=== PATIENT | female | born 2005 | race Caucasian/White ===

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

== ENCOUNTER 2025-01-16 08:52 | Emergency (ER) | payer OTHER, SELFPAY ==
[2025-01-16 09:13] VITALS: BP 120/73; PULSE 92; RESP 16; TEMP 36.8; O2SAT 97
[2025-01-16] MEDS: Ondansetron 4 MG/2 ML VIAL IVP (09:45)
[2025-01-16] MEDS: Lactated Ringers 1,000 ML 1000 ML IV (09:45)
[2025-01-16 10:07] LABS: Glucose Negative (Negative)
[2025-01-16 10:10] LABS: Abs Immature Grans 0.03 10^3/uL (0.0-0.06); HCT 41.3 % (36.0-46.0); HGB 14.8 g/dL (11.2-15.7); Immature Grans % 0.3 %; MCH 29.4 pg (27.0-33.0); MCHC 35.8 % (32.0-36.0); MCV 82 fL (80-95); MPV 8.7 fL (8.0-11.0); Platelet Count 322 10^3/uL (130-400); RBC 5.03 10^6/uL (3.93-5.22); RDW 12.1 % (11.7-14.6); RDW-SD 35.7 fL; WBC 9.46 10^3/uL (4.4-10.8)
[2025-01-16 10:17] LABS: C & S Indicated? No; RBC 0-2 HPF (0-2); WBC 0-2 HPF (0-5)
--- NOTE | 2025-01-16 10:23 | W.ED.GENAD ---
Discharge Plan Disposition Patient Disposition: Home Condition: Stable Discharge Details Clinical Impression: Nausea & vomiting Primary Care Provider: None,None ED Provider: Elisabeth Tolbert Home Meds and New Rx's Prescriptions: New ondansetron 4 mg tablet,disintegrating 4 mg PO TID PRN3 Days Qty: 12 0RF Continued albuterol sulfate 90 mcg/actuation HFA aerosol inhaler 2 inh INHALATION Q4H PRN Patient Comments: INHALE 2 PUFFS BY MOUTH EVERY 6 HOURS NEEDED FOR WHEEZING Nexplanon 68 mg Implant See Rx Instructions .ROUTE .COMPLEX Rx Instructions: As directed olanzapine 5 mg tablet 15 mg PO QHS ondansetron 4 mg tablet,disintegrating 8 mg PO DAILY PRN Patient Comments: DISSOLVE 1 TABLET IN MOUTH EVERY 8 HOURS NEEDED FOR NAUSEA AND VOMITING FOR 3 DAYS Discharge Instructions Instructions: Nausea and Vomiting, Adult ED Additional Instructions: Clear liquids, if you are regularly able to tolerate Gatorade, water, fluids Jell-O and soup, you may try some bland food such as toast, rice, applesauce, bananas Take the Zofran as needed for nausea and vomiting Try to take your Zyprexa continuously it may help to set an alarm on your phone Stand Alone Forms: Portal Information Discharge Data Discharge Date/Time-TO BE ENTERED AT DEPARTURE: 01/16/25 12:22 HPI General Date/Time Provider Initiated Documentation: 01/16/25 08:52. HPI Narrative: This 19-year-old female presents with nausea and vomiting that started Wednesday. She had not taken her antipsychotics for several days when this began. She states this to happen numerous times in the past. 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 She has had Related Data Home Medications Medication Instructions Recorded Confirmed albuterol sulfate 90 mcg/actuation 2 inh inhalation Q4H PRN 04/02/22 01/16/25 aerosol inhaler etonogestrel 68 mg subdermal See Rx Instructions .Route .COMPLEX 04/02/22 01/16/25 implant (Nexplanon) olanzapine 5 mg tablet 15 mg PO QHS 03/11/23 01/16/25 ondansetron 4 mg disintegrating 8 mg PO DAILY PRN 03/11/23 01/16/25 tablet ondansetron 4 mg disintegrating 4 mg PO TID PRN 3 days #12 tabs 01/16/25 tablet Previous Rx's Medication Instructions Recorded ondansetron 4 mg disintegrating 4 mg PO TID PRN 3 days #12 tabs 01/16/25 tablet Allergies Allergy/AdvReac Type Severity Reaction Status Date / Time acetaminophen (From Tylenol) AdvReac Nausea Unverified 01/16/25 09:17 clonidine AdvReac Other (See Unverified 01/16/25 09:17 Comment) General Stated Complaint: Nausea/Vomit/Diar RAMSES: 3 Course Vital Signs Vital signs: Vital Signs Temperature 36.8 C 01/16/25 09:13 Pulse 92 H 01/16/25 09:13 Respiratory Rate 16 01/16/25 09:13 Blood Pressure 120/73 01/16/25 09:13 Pulse Oximetry 97 01/16/25 09:13 Temperature 36.8 C 01/16/25 09:13 Temperature Source Tympanic 01/16/25 09:13 Pulse 92 H 01/16/25 09:13 Respiratory Rate 16 01/16/25 09:13 Blood Pressure 120/73 01/16/25 09:13 Pulse Oximetry 97 01/16/25 09:13 Oxygen Delivery Method Room Air 01/16/25 09:13 Oxygen Flow Rate 0 01/16/25 09:13 Lab/Test Results Lab/Test Results: Laboratory Tests Range/Units 01/16/25 01/16/25 09:45 09:51 WBC (4.4-10.8) 10^3/uL 9.46 RBC (3.93-5.22) 10^6/uL 5.03 Hgb (11.2-15.7) g/dL 14.8 Hct (36.0-46.0) % 41.3 MCV (80-95) fL 82 MCH (27.0-33.0) pg 29.4 MCHC (32.0-36.0) % 35.8 RDW (11.7-14.6) % 12.1 Plt Count (130-400) 10^3/uL 322 MPV (8.0-11.0) fL 8.7 Immature Gran % % 0.3 Neutrophils % % 83.0 Lymphocytes % % 11.3 Monocytes % % 5.1 Eosinophils % % 0.0 Basophils % % 0.3 Nucleated RBC % (0.0-0.3) % 0.0 Absolute Neutrophils (1.2-6.7) 10^3/uL 7.85 H Absolute Lymphocytes (1.2-3.4) 10^3/uL 1.07 L Absolute Monocytes (0.1-0.8) 10^3/uL 0.48 Absolute Eosinophils (0.0-0.7) 10^3/uL 0.00 Absolute Basophils (0.0-0.2) 10^3/uL 0.03 Urine Color (Yellow) Yellow Urine Clarity (Clear) Clear Urine pH (5-8) 5.5 Ur Specific Marty (1.005-1.025) >= 1.030 H Urine Protein (Neg-Trace) mg/dL 30 H Urine Ketones (Negative) mg/dL >=160 H Urine Blood (Negative) Negative Urine Nitrite (Negative) Negative Urine Bilirubin (Negative) Small H Urine Urobilinogen (Up to 0.2) mg/dL 0.2 Ur Leukocyte Esterase (Negative) Negative Urine RBC (0-2) HPF 0-2 Urine WBC (0-5) HPF 0-2 Ur Epithelial Cells (Negative) HPF Few Urine Crystals (Negative) HPF Negative Urine Bacteria (Negative) HPF Moderate Urine Casts (Negative) LPF Negative Urine Mucus (Negative) Moderate Ur Culture Indicated? No Urine Glucose (Negative) mg/dL Negative Medical Decision Making Patient alert, oriented, no acute distress, she does have ketonuria on her urinalysis likely dehydration, labs are otherwise reassuring, patient is able to tolerate p.o., she received 2 L of NS, antiemetics, and is requesting discharge home, she is in stable condition and encouraged to follow-up with primary care physician for recheck in 1 to 2 days. Nontender abdominal assessment throughout her stay low suspicion clinically for intra-abdominal process. Negative hCG PFSH All Active Problems (Updated 01/16/25 @ 11:07 by DANELLE Quiroga) Nausea & vomiting (Acute) Medical History Asthma Surgical History No significant past surgical history Social History Smoking/Tobacco Use Status: Current every day Tobacco Type: e-cigarettes Smoking risk assessment performed?: Yes Alcohol Intake: current Alcohol Intake frequency: a few times a month Drug use: Occasionally Substance use type: marijuana Do you feel safe at home: Yes Do you feel safe in your relationship?: Yes
[2025-01-16 10:25] LABS: ALT 33 U/L (14-59); AST 18 U/L (15-37); Albumin 4.5 g/dL (3.4-5.0); Alkaline Phosphatase 64 U/L (46-116); Anion Gap 15.9 mmol/L (3-11); BUN 12 mg/dL (7-18); Bilirubin, Total 1.0 mg/dL (0.2-1.0); CO2 21.1 mmol/L (21.0-32.0); Calcium 9.7 mg/dL (8.5-10.1); Chloride 102 mmol/L (98-107); Glucose 110 mg/dL (74-106); Magnesium 1.8 mg/dL (1.8-2.4); Potassium 3.5 mmol/L (3.5-5.1); Sodium 139 mmol/L (136-145); Total Protein 8.6 g/dL (6.4-8.2)
[2025-01-16 10:28] LABS: HCG Qual (Serum) Negative
--- NOTE | 2025-01-16 10:52 | NUR.NOTE ---
Nursing Note: pt says she feels better has no nausea at this time trying to take small bites of crackers
[2025-01-16] MEDS: Normal Saline 1,000 ML 1000 ML IV (11:15)
[2025-01-16 11:42] LABS: Iron 93 ug/dL (50-170); Total Iron Binding Capacity 305 ug/dL (250-450); Transferrin Sat 30 % (15-50)
[2025-01-16 12:05] LABS: Cholesterol 184 mg/dL (<200); Ferritin 134 ng/mL (8-252); HDL Cholesterol 72 mg/dL (>or=50); TSH 0.66 uIU/mL (0.52-4.13); Vitamin D 25 Total 19 ng/mL (30-100)
[2025-01-16 12:19] VITALS: BP 116/68; PULSE 68; RESP 16; O2SAT 100
== END 2025-01-16 12:22 | disposition home or self-care (01) ==
PROVIDERS: Nurse Practitioner Family; Emergency Provider Physician Assistant
DX: R11.2 Nausea with vomiting, unspecified (principal)
CPT/HCPCS: 80053; 80061; 82306; 96361; 96374; 99284; 81003; 81015; 82728; 83540; 83550; 83735; 84443; 84703; 85025; 99283; J2405